=== PATIENT | male | born 1965 | race Asian ===

== ENCOUNTER 2020-11-10 15:36 | Outpatient (CLI) | payer OTHER | END 2020-11-10 15:37 | disposition home or self-care (01) | LOC: CT 15:36 | PROVIDERS: ATTEND Family Medicine | DX: R09.89 Other specified symptoms and signs involving the circulatory and respiratory systems (principal); M54.5 Low back pain; R91.8 Other nonspecific abnormal finding of lung field; K80.20 Calculus of gallbladder without cholecystitis without obstruction; N20.0 Calculus of kidney; M47.816 Spondylosis without myelopathy or radiculopathy, lumbar region | CPT/HCPCS: 71250; 72100 ==

== ENCOUNTER 2021-07-18 11:47 | Outpatient (CLI) | payer BC | END 2021-07-18 11:48 | disposition home or self-care (01) | LOC: BICRAD 11:47 | PROVIDERS: ATTEND Nurse Practitioner Family | DX: M79.89 Other specified soft tissue disorders (principal) ==